=== PATIENT | female | born 1940 ===

== ENCOUNTER 2024-10-13 08:58 | Outpatient (CLI) | payer OTHER ==
[2024-10-13] MEDS ORDERED: CHILDREN'S ASPI81 MG PO (13:54)
[2024-10-13] MEDS ORDERED: CILOSTAZOL50 MG PO (13:55)
[2024-10-13] MEDS ORDERED: TOPROL XL25 M1 PO (13:55)
[2024-10-13] MEDS ORDERED: ATORVASTATIN CA40 MG PO (13:55)
[2024-10-13] MEDS ORDERED: PLAVIX75 MG PO (13:55)
[2024-10-13] MEDS ORDERED: PEPCID AC20 MG PO (13:56)
[2024-10-13] MEDS ORDERED: ACTIDOGESIC-DF1 EACH PO (13:56)
[2024-10-13] MEDS ORDERED: HORIZANT300 MG PO (13:57)
[2024-10-13] MEDS ORDERED: ABANEU-SL TABL1 EACH SL (13:57)
[2024-10-13] MEDS ORDERED: ZESTRIL2.5 MG PO (13:57)
== END 2024-10-13 09:05 | disposition home or self-care (01) ==
LOC: RAD 08:58
PROVIDERS: ATTEND Surgery
DX: C18.0 Malignant neoplasm of cecum (principal); R19.4 Change in bowel habit

== ENCOUNTER 2024-10-13 11:45 | Inpatient (IN) | payer OTHER ==
[~2024-10-13] VITALS: Ht 152.4 cm; Wt 47.6 kg
[2024-10-13] MEDS ORDERED: CHILDREN'S ASPI81 MG PO (13:54)
[2024-10-13] MEDS ORDERED: ATORVASTATIN CA40 MG PO (13:55)
[2024-10-13] MEDS ORDERED: TOPROL XL25 M1 PO (13:55)
[2024-10-13] MEDS ORDERED: CILOSTAZOL50 MG PO (13:55)
[2024-10-13] MEDS ORDERED: PLAVIX75 MG PO (13:55)
[2024-10-13] MEDS ORDERED: ACTIDOGESIC-DF1 EACH PO (13:56)
[2024-10-13] MEDS ORDERED: PEPCID AC20 MG PO (13:56)
[2024-10-13] MEDS ORDERED: ABANEU-SL TABL1 EACH SL (13:57)
[2024-10-13] MEDS ORDERED: ZESTRIL2.5 MG PO (13:57)
[2024-10-13] MEDS ORDERED: HORIZANT300 MG PO (13:57)
[2024-10-22] MEDS ORDERED: BUPIVACAINE HCL/PF 0.25% 30ML VIAL InF ONE (14:00)
[2024-10-22] MEDS ORDERED: CEFTRIAXONE SODIUM 2,000 MG VIAL IV ONE (14:00)
[2024-10-22] MEDS ORDERED: METRONIDAZOLE/SODIUM CHLORIDE 500 MG/100 ML PIGGYBACK IV ONE (14:00)
[2024-10-22] MEDS ORDERED: LIDOCAINE HCL 1%/EPINEPHRINE 20ML VIAL IJ ONE (14:00)
[2024-10-22] MEDS ORDERED: DEXTROSE 50 % IN WATER 0.5 G/ML DISP.SYRIN IV PRN (15:00)
[2024-10-22] MEDS ORDERED: OxyCODONE HCL 5 MG TABLET (ROXICODONE) PO PRN (15:00)
[2024-10-22] MEDS ORDERED: MORPHINE SULFATE 4 MG/ML CARTRIDGE IV PRN (15:00)
[2024-10-22] MEDS ORDERED: 0.9 % SODIUM CHLORIDE 1,000 ML IV SCH (15:00)
[2024-10-22] MEDS ORDERED: ONDANSETRON HCL 2 MG/ML VIAL IV PRN (15:00)
[2024-10-22] MEDS ORDERED: SUGAMMADEX SODIUM 200 MG/2 ML VIAL IV ONE (15:45)
[2024-10-22] MEDS ORDERED: ENALAPRILAT DIHYDRATE 1.25 MG/ML VIAL IV PRN (16:00)
[2024-10-22] MEDS ORDERED: MORPHINE SULFATE 4 MG/ML VIAL IV ONE ×2 (16:25→17:10)
[2024-10-22] MEDS ORDERED: POLYETHYLENE GLYCOL 3350 17 GM BLIST.PACK PO SCH (17:00)
[2024-10-22] MEDS ORDERED: HYOSCYAMINE SULFATE 0.125 MG TAB.SUBL SL SCH (17:00)
[2024-10-22] MEDS ORDERED: GABAPENTIN 300 MG CAPSULE PO SCH (17:00)
[2024-10-22 17:44] LABS: HEMATOCRIT 32.5 % (36.0-45.00); HEMOGLOBIN 10.9 g/dL (12.0-15.00); MEAN CELL VOLUME 88.1 fL (80.00-100.00); MEAN CORPUSCULAR HEMOGLOBIN 29.6 pg (27.00-32.0); MEAN CORPUSCULAR HGB CONC 33.6 g/dl (32.0-36.0); PLATELET COUNT 286 K/uL (150-450); RED BLOOD COUNT 3.69 M/uL (4.00-6.00); RED CELL DISTRIBUTION WIDTH 13.3 % (11.5-14.5)
[2024-10-22 18:15] LABS: ALBUMIN 3.6 gm/dL (3.4-5.0); CALCIUM 8.9 mg/dL (8.5-10.1); CREATININE SERUM 0.82 mg/dL (0.55-1.02); GFR 66.58; MAGNESIUM 1.6 mg/dL (1.8-2.4); PHOSPHOROUS 3.4 mg/dL (2.5-4.9); POTASSIUM 3.12 mEq/L (3.5-5.1)
[2024-10-22] MEDS ORDERED: ENALAPRILAT DIHYDRATE 1.25 MG/ML VIAL IV ONE (18:54)
[2024-10-22 19:17] VITALS: BP 140/76; O2SAT 96
[2024-10-22] MEDS ORDERED: ACETAMINOPHEN 500 MG GEL..CAP PO SCH (20:00)
[2024-10-22] MEDS ORDERED: CELECOXIB 200 MG CAPSULE PO SCH (21:00)
[2024-10-22] MEDS ORDERED: FAMOTIDINE/PF 20 MG/2 ML VIAL IV PUSH SCH (21:00)
[2024-10-23] VITALS: BP 143/66; O2SAT 100
[2024-10-23 05:54] LABS: HEMATOCRIT 33.1 % (36.0-45.00); HEMOGLOBIN 10.9 g/dL (12.0-15.00); MEAN CELL VOLUME 87.9 fL (80.00-100.00); PLATELET COUNT 265 K/uL (150-450); RED BLOOD COUNT 3.77 M/uL (4.00-6.00); RED CELL DISTRIBUTION WIDTH 13.3 % (11.5-14.5)
[2024-10-23 06:15] LABS: ALBUMIN 3.3 gm/dL (3.4-5.0); CALCIUM 8.6 mg/dL (8.5-10.1); CREATININE SERUM 0.84 mg/dL (0.55-1.02); GFR 64.75; MAGNESIUM 1.6 mg/dL (1.8-2.4); PHOSPHOROUS 3.2 mg/dL (2.5-4.9); POTASSIUM 3.62 mEq/L (3.5-5.1)
[2024-10-23 08:00] VITALS: BP 110/56; O2SAT 99
[2024-10-23] MEDS ORDERED: LISINOPRIL 2.5 MG TABLET PO SCH (09:00)
[2024-10-23] MEDS ORDERED: METOPROLOL SUCCINATE 25 MG TAB.SR.24H PO SCH (09:00)
[2024-10-23] MEDS ORDERED: MAGNESIUM SULFATE IN WATER 50 ML IV NR (11:15)
[2024-10-23 16:00] VITALS: BP 98/52; O2SAT 96
[2024-10-23] MEDS ORDERED: ATORVASTATIN CALCIUM 40 MG TABLET PO SCH (17:00)
[2024-10-23] MEDS ORDERED: ENOXAPARIN SODIUM 40 MG/0.4 ML SYRINGE SUBCUTANEO SCH (17:00)
[2024-10-24 01:13] VITALS: BP 121/66; O2SAT 97
[2024-10-24] MEDS ORDERED: ENOXAPARIN SODIUM 40 MG/0.4 ML SYRINGE SUBCUTANEO SCH (09:00)
[2024-10-24 09:12] VITALS: BP 129/74; O2SAT 95
[2024-10-24 09:13] LABS: HEMATOCRIT 28.2 % (36.0-45.00); HEMOGLOBIN 9.7 g/dL (12.0-15.00); MEAN CELL VOLUME 87.5 fL (80.00-100.00); MEAN CORPUSCULAR HEMOGLOBIN 30.2 pg (27.00-32.0); MEAN CORPUSCULAR HGB CONC 34.6 g/dl (32.0-36.0); PLATELET COUNT 219 K/uL (150-450); RED BLOOD COUNT 3.22 M/uL (4.00-6.00); RED CELL DISTRIBUTION WIDTH 13.8 % (11.5-14.5)
[2024-10-24 09:15] LABS: CALCIUM 8.6 mg/dL (8.5-10.1); CREATININE SERUM 0.96 mg/dL (0.55-1.02); GFR 55.5; MAGNESIUM 2.6 mg/dL (1.8-2.4); POTASSIUM 3.45 mEq/L (3.5-5.1)
[2024-10-24 10:11] LABS: PHOSPHOROUS 1.4 mg/dL (2.5-4.9)
[2024-10-24] MEDS ORDERED: POTASSIUM PHOS,M-BASIC-D-BASIC 15 MM in 0.9 % SODIUM CHLORIDE 250 ML IV NR (10:30)
[2024-10-24] MEDS ORDERED: GABAPENTIN 300 MG CAPSULE PO PRN (11:49)
[2024-10-24 16:33] VITALS: BP 134/58; O2SAT 91
[2024-10-25 00:34] VITALS: BP 106/50; O2SAT 95
[2024-10-25 08:00] VITALS: BP 141/65; O2SAT 95
[2024-10-25] MEDS ORDERED: NEURONTIN300 MG PO (10:17)
[2024-10-25] MEDS ORDERED: CELECOXIB200 MG PO (10:17)
[2024-10-25] MEDS ORDERED: INTESTINEX680 M1 PO (10:18)
== END 2024-10-25 14:00 | disposition home or self-care (01) | DRG 331 ==
LOC: O/R 10-22 11:00 → SURH 10-22 11:45
PROVIDERS: Internal Medicine Geriatric Medicine; ADMIT Surgery; ATTEND Surgery
PROC: 07BB4ZZ Excision of Mesenteric Lymphatic, Percutaneous Endoscopic Approach (ICD-10-PCS; 2024-10-22)
PROC: 0DTF4ZZ Resection of Right Large Intestine, Percutaneous Endoscopic Approach (ICD-10-PCS; principal; 2024-10-22 11:45)
DX: C18.0 Malignant neoplasm of cecum (principal); R59.0 Localized enlarged lymph nodes; Z20.822 Contact with and (suspected) exposure to COVID-19